=== PATIENT | female | born 1985 | race Caucasian/White ===

== ENCOUNTER 2016-07-30 17:58 | Emergency (ER) | payer OTHER ==
[~2016-07-30] VITALS: Ht 160 cm; Wt 53.2 kg
[~2016-07-30 17:58] MED LIST: BENTYL20 MG PO; K-DUR20 MEQ PO; KEFLEX500 MG PO; MOTRIN800 MG PO; ORTHO EVRA PA1 PATCH TP; PERCOCET 5/31 TABLET PO; TYLENOL EXTRA500 MG PO; VALIUM5 MG PO; ZOFRAN ODT4 MG PO; ZOFRAN4 MG PO; ZYRTEC-D1 TABLE1 PO
[2016-07-30] MEDS ORDERED: VALTREX1000 MG PO (18:40)
[2016-07-30] MEDS ORDERED: ZOVIRAX5 GM TP (18:40)
[2016-07-30 19:06] VITALS: BP 118/82
== END 2016-07-30 19:07 | disposition home or self-care (01) ==
LOC: EME 17:58 → EXP 17:58
DX: B00.9 Herpesviral infection, unspecified (principal)
CPT/HCPCS: 99281; 99283